=== PATIENT | male | born 1975 | race Caucasian/White ===

== ENCOUNTER 2016-11-02 09:10 | Emergency (ER) | payer SELFPAY ==
[~2016-11-02] VITALS: Ht 188 cm; Wt 147.4 kg
[2016-11-02] MEDS ORDERED: PHENYLEPHRINE 1% NASAL SPRAY 15ML BOTTLE. NS ONE (09:30)
[2016-11-02] MEDS ORDERED: LIDOCAINE 2% VISCOUS 15 ML SOLUTION. SWSW ONE (10:00)
--- NOTE | 2016-11-02 10:40 | ED.ADGEN ---
Past Medical History Past Medical History: Hypertension Past Surgical History: Other Additional Past Surgical Histo: DENTAL,HPV WART REMOVED FROM BUTTOCKS Alcohol Use: None Drug Use: None Adult General Chief Complaint Chief Complaint: NOSEBLEED HPI HPI Patient is a 41 year old man, history of pre-hypertension, obesity, who presents to the emergency department with a complaint of nosebleed that began last night. Patient states that he has been up since about 8 AM yesterday morning, as he has had multiple work duties, and has been drinking a fair amount of caffeinated beverages including soda and double shot latte, states that he is experiencing mild rhinorrhea and upper respiratory type symptoms for the past several days, positive for sick contacts at work. He states that he first noted bleeding around 5:30 in the morning, when he was working on his computer, states that he placed packing in his nose, but continued to have bleeding from the left Orosco, and then bleeding from the right. Bleeding has been intermittent. He denies any headache, any digital trauma, any fevers or chills, any nausea or vomiting, any weakness, numbness or tingling, any bleeding or bruising from other areas, any similar symptoms previously, does not take any medications regular basis, has taken no medications prior to coming to the ED. No drugs, alcohol or cigarettes. No history of similar symptoms. Patient noted to have blood and clots in the left Orosco, in his right Orosco he has placed a paper towel, noted to have oozing from the left Orosco. Review of Systems Review of Systems Constitutional: Denies fever or chills. [] Eyes: Denies change in visual acuity. [] HENT: Nasal congestion and rhinorrhea the past several days, no sore throat, development of intermittent epistaxis around 5:30 this morning. Respiratory: Denies cough or shortness of breath. [] Cardiovascular: Denies chest pain or edema. [] GI: Denies abdominal pain, nausea, vomiting, bloody stools or diarrhea. [] : Denies dysuria. [] Musculoskeletal: Denies back pain or joint pain. [] Integument: Denies rash. [] Neurologic: Denies headache, focal weakness or sensory changes. [] Endocrine: Denies polyuria or polydipsia. [] Lymphatic: Denies swollen glands. [] Psychiatric: Denies depression or anxiety. [] Current Medications Current Medications Current Medications Medications (Trade) Dose Ordered Sig/Thea Start Time Stop Time Status Last Admin Dose Admin Lidocaine HCl (Viscous Lidocaine) 15 ml 1X ONCE 11/02/16 10:00 11/02/16 10:01 DC 11/02/16 10:47 15 ML Phenylephrine HCl (Ricardo-Synephrine 1% Nasal) 2 spray 1X ONCE 11/02/16 09:30 11/02/16 09:39 DC 11/02/16 09:39 2 SPRAY Allergies Allergies Allergies Coded Allergies Type Severity Reaction Last Updated Verified No Known Drug Allergies 11/02/16 No Physical Exam Physical Exam Constitutional: Well developed, well nourished, no acute distress, non-toxic appearance. [] HENT: Normocephalic, atraumatic, bilateral external ears normal, oropharynx moist, no oral exudates, patient with blood noted in the oropharynx, but no active bleeding identified, cleared after patient gargles with cold water, patient noted to have blood and clots in the left Orosco, right Orosco is cleared and there is no evidence of denuded tissue or abnormalities of the mucosa, after nasal spray applied, reexamined the left Orosco, patient does have small amount of remaining clot in the very anterior portion of the Orosco, however visualize mucosa is intact with no evidence of active bleeding or denuded vessels. Patient is not having any bleeding at this time. Eyes: PERRLA, EOMI, conjunctiva normal, no discharge. [] Neck: Normal range of motion, no tenderness, supple, no stridor. [] Cardiovascular:Heart rate regular rhythm, no murmur, S1, S2, rubs or gallops. [] Lungs & Thorax: Bilateral breath sounds clear to auscultation, no wheezing, rhonchi, rales. No chest tenderness or crepitus. [] Abdomen: Bowel sounds normal, soft, no tenderness, no masses, no pulsatile masses. [] Skin: Warm, dry, no erythema, no rash. [] Back: No tenderness, no CVA tenderness. [] Extremities: No tenderness, no cyanosis, no clubbing, ROM intact, no edema. [] Neurologic: Alert and oriented X 3, normal motor function, normal sensory function, no focal deficits noted. [] Psychologic: Affect normal, judgement normal, mood normal. [] Current Patient Data Vital Signs Vital Signs Date Time Temp Pulse Resp B/P Pulse Ox O2 Delivery O2 Flow Rate FiO2 11/02/16 12:04 96 18 170/89 97 Room Air 11/02/16 09:22 97.6 97.6 EKG EKG Not indicated. [] Radiology/Procedures Radiology/Procedures Not indicated. [] Course & Med Decision Making Course & Med Decision Making Pertinent Labs and Imaging studies reviewed. (See chart for details) Patient initially noted be hypertensive upon arrival to the ED, he states that he has this happen when he is stressed out, repeat blood pressure is 145/88, after spraying with Ricardo-Synephrine, no active bleeding is identified, patient was able to clear his Orosco's adequately, I did not visualize any areas of abnormality or active bleeding. Examination is consistent with anterior epistaxis, no evidence of posterior bleeding. Patient received a second dose of Ricardo-Synephrine at this time, we'll continue to monitor in the ED at this point to see if rebleeding occurs. Patient is agreeable with this plan. He is observed in the ED for an additional 30 minutes, with no recurrent bleeding, I did reexamine his oropharynx, and both naris, at that point clots of unclear, and I did not see any areas of bleeding or other concerning findings. Patient given clear and detailed return instructions with which he voiced understanding and agreement, blood pressure is again in the 140s over 80s, heart rate is in the 80s, and he is denying all complaints at this time. We did discuss use of caffeine, and techniques to prevent recurrence of bleeding, and use of Ricardo- Synephrine and pressure and rebleeding occurs, and concerning symptoms that prompt return to the emergency department for additional evaluation. Patient voiced understanding and agreement, discharged home in stable condition with plan as above. Dragon Disclaimer Dragon Disclaimer This electronic medical record was generated, in whole or in part, using a voice recognition dictation system. Departure Impression: Primary Impression: Acute anterior epistaxis Disposition: 01 HOME, SELF-CARE Condition: IMPROVED GERI MENG DO Nov 02, 2016 10:40
[2016-11-02 12:04] VITALS: BP 170/89
== END 2016-11-02 12:04 | disposition home or self-care (01) ==
LOC: ER 09:10
DX: R04.0 Epistaxis (principal); I10 Essential (primary) hypertension; E66.9 Obesity, unspecified; Z68.41 Body mass index [BMI] 40.0-44.9, adult
CPT/HCPCS: 99284